=== PATIENT | male | born 1965 | race Caucasian/White ===

== ENCOUNTER 2018-10-05 19:13 | Emergency (ER) | payer BC ==
[2018-10-05 19:46] VITALS: BP 144/69
[2018-10-05] MEDS ORDERED: Acyclovir* 200 MG CAP PO ONE (19:54)
--- NOTE | 2018-10-05 19:54 | UC ---
Skin Complaint HPI - HPI Summary HPI Summary: C/O rash with pain on the left buttocks C/O shingles. - History of Current Complaint Chief Complaint: UCRas Time Seen by Provider: 10/05/18 19:42 Stated Complaint: SKIN CONCERN Hx Obtained From: Patient Onset/Duration: Sudden Onset, Lasting Days - 2 Timing: Constant Onset Severity: Mild Current Severity: Mild Pain Intensity: 3 Location: Discrete - Left buttocks Character: Pruritus, Pain, Redness, Raised Aggravating Factor(s): Touch Alleviating Factor(s): Nothing Associated Signs & Symptoms: Positive: Rash. Negative: Diaphoresis, Fever, Chills - Allergy/Home Medications Allergies/Adverse Reactions: Allergies Allergy/AdvReac Type Severity Reaction Status Date / Time No Known Allergies Allergy Verified 10/05/18 19:46 Review of Systems All Other Systems Reviewed And Are Negative: Yes Skin: Positive: Rash Is Patient Immunocompromised?: No PMH/Surg Hx/FS Hx/Imm Hx Previously Healthy: Yes - Surgical History Surgical History: None - Family History Known Family History: Positive: Hypertension - Social History Occupation: Employed Full-time Lives: With Family Alcohol Use: Occasionally Substance Use Type: None Smoking Status (MU): Never Smoked Tobacco Physical Exam Triage Information Reviewed: Yes Appearance: Well-Appearing, No Pain Distress, Well-Nourished Vital Signs: Initial Vital Signs Temp 98.6 F 10/05/18 19:42 Pulse 95 10/05/18 19:42 Resp 16 10/05/18 19:42 BP 144/69 10/05/18 19:42 Pulse Ox 99 10/05/18 19:42 Vital Signs Reviewed: Yes Eyes: Positive: Conjunctiva Clear Neck exam: Normal Respiratory Exam: Normal Cardiovascular Exam: Normal Musculoskeletal Exam: Normal Neurological Exam: Normal Psychological Exam: Normal Skin: Positive: Rashes - Vesicular rash along the L1 dermatome Course/Dx - Differential Diagnoses - Skin Complaint Differential Diagnoses: Drug Rash, Varicella Zoster, Viral Exanthem - Diagnoses Provider Diagnoses: Shingles Discharge - Sign-Out/Discharge Documenting (check all that apply): Patient Departure All imaging exams completed and their final reports reviewed: No Studies - Discharge Plan Condition: Stable Disposition: HOME Prescriptions: ValACYclovir (*) [Valtrex 1 GM(*)] 1 gm PO TID #21 tab Patient Education Materials: Shingles (ED), Valacyclovir (By mouth) Referrals: No Primary Care Phys,NOPCP [Primary Care Provider] - - Billing Disposition and Condition Condition: STABLE Disposition: Home
== END 2018-10-05 20:05 | disposition home or self-care (01) ==
LOC: UCCORT 19:13
DX: B02.9 Zoster without complications (principal)
CPT/HCPCS: 99202; A9270-GY; G0463